=== PATIENT | male | born 1960 | race Two or more races ===

== ENCOUNTER 2017-11-16 12:30 | Emergency (ER) | payer OTHER ==
[2017-11-16 13:47] LABS: Basophils # (auto) 0 uL; Basophils % (auto) 0.1 % (0.0-2.0); Eosinophils # (auto) 0 uL; Eosinophils % (auto) 0.2 % (0.0-7.0); Hematocrit 51.9 % (41.0-53.0); Hemoglobin 17.6 g/dL (13.5-17.5); Lymphocytes # (auto) 0.4 uL; Lymphocytes % (auto) 5.4 % (10.0-50.0); Mean Corpuscular Hemoglobin 30.3 pg (28.0-32.0); Mean Corpuscular Hgb Conc. 33.9 g/dL (32.0-36.0); Mean Corpuscular Volume 89.1 fL (80.0-100.0); Mean Platelet Volume 7.7 fL (6.9-10.8); Monocytes # (auto) 0.8 uL; Monocytes % (auto) 9.4 % (0.0-12.0); Neutrophils # (auto) 6.9 uL; Neutrophils % (auto) 84.9 % (37.0-80.0); Platelet Count (auto) 288 10^3/uL (140-450); Red Cell Distribution Width 13.7 % (11.8-14.3); White Blood Cell 8.2 10^3/uL (4.4-10.8)
[2017-11-16 14:13] LABS: Albumin 3.6 g/dL (3.4-5.0); Alkaline Phosphatase 62 U/L (45-117); Amylase 24 U/L (25-115); Anion Gap 9 (5-15); Aspartate Aminotransferase 14 U/L (15-37); BUN/Creatinine Ratio 34.7; Bilirubin, Total 1.4 mg/dL (0.2-1.0); Blood Urea Nitrogen 35 mg/dL (7-18); Calcium 8.9 mg/dL (8.5-10.1); Carbon Dioxide 27 mmol/L (21-32); Chloride 99 mmol/L (98-107); GFR African American 98 mL/min; GFR Non-African American 81 mL/min; Glucose 143 mg/dL (74-106); Magnesium 2.6 mg/dL (1.6-2.6); Potassium 4.5 mmol/L (3.5-5.1); Sodium 135 mmol/L (136-145); Total Protein 8.1 g/dL (6.4-8.2)
[2017-11-16 14:16] LABS: Urine Blood Negative /uL (Negative); Urine Color Yellow (Yellow); Urine Glucose TRACE mg/dL (Normal); Urine Ketone TRACE (Negative); Urine Mucus FEW (None Seen); Urine Nitrite Negative (Negative); Urine RBC 1 /hpf (0 - 3); Urine Squamous Epithelial Cell FEW /hpf (<5)
[2017-11-16 14:42] LABS: Urine Bilirubin Negative (Negative)
[2017-11-16] MEDS ORDERED: ONDANSETRON HCL 4 MG/2 ML VIAL IV ONE (19:15)
[2017-11-16] MEDS ORDERED: MORPHINE SULFATE 4 MG/ML SYRG IV ONE (19:15)
[2017-11-17 00:10] VITALS: BP 120/70
== END 2017-11-17 00:43 | disposition home or self-care (01) ==
LOC: ER 12:40
DX: K40.90 Unilateral inguinal hernia, without obstruction or gangrene, not specified as recurrent (principal)
CPT/HCPCS: 36415; 74176; 80053; 81001; 82150; 83690; 83735; 84484; 85025; 93005; 96374; 96375; 99285; J2270; J2405